=== PATIENT | female | born 1995 | race Caucasian/White ===

== ENCOUNTER 2019-07-30 13:46 | Emergency (ER) | payer MEDICAID ==
[~2019-07-30] VITALS: Ht 157.5 cm; Wt 76.7 kg
--- NOTE | 2019-07-30 14:00 | NUR ---
[id number], SEIZURE PER DIETARY INTERNSHIP REPORT. 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 NO ORAL TRAUMA NOTE. ROOM AIR, BREATHING EVENLY AND UNLABORED. CONNECTED TO THE MONITOR AND PULSE OX. KEPT COMFORTABLE, WILL CONTINUE TO MONITOR ACCORDINGLY.
[2019-07-30] MEDS ORDERED: LEVETIRACETAM (500MG) 500 MG in IV NS 0.9% 100 ML IV SCH (14:30)
[2019-07-30 15:32] VITALS: BP 135/71
--- NOTE | 2019-07-30 15:33 | NUR ---
Patient discharged to home in stable condition. Written and verbal after care instructions given. Patient verbalizes understanding of instruction.IV removed. Catheter intact and site benign. Pressure and 4x4 applied to site. No bleeding noted.
== END 2019-07-30 15:32 | disposition home or self-care (01) ==
LOC: ER 13:54
DX: R56.9 Unspecified convulsions (principal)
CPT/HCPCS: 96365; 99283; J1953; J7030